=== PATIENT | female | born 1960 | race African-American/Black ===

== ENCOUNTER 2018-02-13 14:13 | Inpatient (IN) ==
[2018-02-13 15:28] LABS: Basophils % 0.5 % (0.0-0.8); Eosinophils # 0.1 10*3/uL (0.0-0.87); Eosinophils % 1.5 % (0.00-10.9); Hematocrit 36.4 VOL% (35.7-47.0); Immature Granulocytes % 0.3 %; Immature Granulocytes Absolute 0.02 #; Lymphocytes # 1.2 10*3/uL (1.4-4.0); Lymphocytes % 20.3 % (21.3-54.2); Mean Corpuscular Hemoglobin 30 PG (27-34); Mean Corpuscular Volume 89.9 FL (87-102); Mean Platelet Volume 10.4 FL (9.6-12.0); Monocytes # 0.5 10*3/uL (0.11-0.8); Monocytes % 8.7 % (1.7-12.7); Neutrophils % 68.7 % (38.7-73.9); Platelet Count 299 T/CUMM (130-400); Red Blood Count 4.05 MC/CUMM (3.8-5.5); Red Cell Distribution Width 13.7 % (9.3-17.3); White Blood Count 5.9 T/CUMM (4-12)
[2018-02-13 15:35] LABS: INR 0.9; PT Patient Result 9.8 SECS; Partial Thromboplastin Time 27.8 SECS (0-40)
[2018-02-13 15:39] LABS: Apearance,Urine CLEAR (Clear); Bilirubin,Urine Negative (Negative); Blood, Urine Negative (Negative); Glucose,Urine (UA) Negative (Negative); Ketones,Urine Negative (Negative); Mucus,Urine Occasional /LPF (Occasional); Nitrite,Urine Negative (Negative); Protein,Urine Negative; RBC,Urine 2 /HPF (0-4); Squamous Epithelial Cell,Urine Occasional /HPF (0-10); Urine Color Yellow (Yellow); Urine Specific Gravity 1.016 (1.001-1.035); Urine Urobilinogen < 2.0 EU/DL (0.2-1.0); WBC,Urine 35 /HPF (0-6)
[2018-02-13 15:52] LABS: Alanine Aminotransferase 24 U/L (13-56); Albumin 3.9 G/DL (3.4-5.0); Alkaline Phosphatase 114 U/L (45-117); Aspartate Amino Transferase 21 U/L (0-37); Bilirubin,Total < 0.39 MG/DL (0.2-1.0); Blood Urea Nitrogen 21 MG/DL (7-18); Calcium 9.5 MG/DL (8.5-10.1); Glucose 93 MG/DL (74-106); Osmolality,Calculated 283.3 MOS/KG (273-304); Sodium 141 MMOL/L (136-145); Total Protein 7.9 G/DL (6.4-8.3)
[2018-02-13] MEDS ORDERED: cefTRIAXone 1,000 MG in SODIUM CHLORIDE 0.9% 100 ML IV STA (15:52)
[2018-02-13 16:09] LABS: Barbiturates Screen,Urine Negative (Negative); Benzodiazepines Screen,Urine Negative (Negative); Cannabinoid Screen,Urine Positive (Negative); Opiate Screen,Urine Negative (Negative); Phencyclidine Screen,Urine Negative (Negative)
[2018-02-13] MEDS ORDERED: LABETALOL 20 MG/4 ML SYRINGE IV PRN (16:36)
[2018-02-13] MEDS: ENOXAPARIN 40 MG/0.4 ML SYRINGE SUBCUT SCH (20:46)
[2018-02-13] MEDS: PANTOPRAZOLE 40 MG TABLET PO SCH (20:46)
[2018-02-13] MEDS: CYPROHEPTADINE 4 MG TABLET PO SCH (20:46)
[2018-02-13] MEDS: ROSUVASTATIN 20 MG TABLET PO SCH (20:46)
[2018-02-13] MEDS: ASPIRIN 325 MG TABLET PO SCH (22:58)
[2018-02-14 04:47] LABS: Basophils % 0.5 % (0.0-0.8); Eosinophils # 0.2 10*3/uL (0.0-0.87); Eosinophils % 3.3 % (0.00-10.9); Hematocrit 34.5 VOL% (35.7-47.0); Hemoglobin 11.5 GM/DL (12.0-16.0); Immature Granulocytes % 0.5 %; Immature Granulocytes Absolute 0.03 #; Lymphocytes # 1.2 10*3/uL (1.4-4.0); Lymphocytes % 20.5 % (21.3-54.2); Mean Corpuscular HGB Conc 33.3 GM/DL (32-36); Mean Corpuscular Hemoglobin 30 PG (27-34); Mean Corpuscular Volume 89.6 FL (87-102); Monocytes # 0.4 10*3/uL (0.11-0.8); Monocytes % 7.7 % (1.7-12.7); Neutrophils # 3.9 10*3/uL (1.4-7.4); Neutrophils % 67.5 % (38.7-73.9); Platelet Count 289 T/CUMM (130-400); Red Blood Count 3.85 MC/CUMM (3.8-5.5); White Blood Count 5.7 T/CUMM (4-12)
[2018-02-14 05:25] LABS: Calcium 8.8 MG/DL (8.5-10.1); Osmolality,Calculated 285.1 MOS/KG (273-304); Potassium 3.8 MMOL/L (3.5-5.1)
[2018-02-14 05:33] LABS: Risk Ratio 5.34
[2018-02-14] MEDS: ASPIRIN 325 MG TABLET PO SCH (08:41)
[2018-02-14] MEDS: PANTOPRAZOLE 40 MG TABLET PO SCH (08:41)
[2018-02-14] MEDS: CYPROHEPTADINE 4 MG TABLET PO SCH ×3 (08:41→20:39)
[2018-02-14] MEDS: amLODIPine 5 MG TABLET PO SCH (16:43)
[2018-02-14] MEDS ORDERED: cefTRIAXone 1,000 MG in SYRINGE 1 EACH IV SCH (17:00)
[2018-02-14] MEDS: ROSUVASTATIN 20 MG TABLET PO SCH (20:38)
[2018-02-14] MEDS: ENOXAPARIN 40 MG/0.4 ML SYRINGE SUBCUT SCH (20:38)
[2018-02-15] MEDS: amLODIPine 5 MG TABLET PO SCH (08:43)
[2018-02-15] MEDS: CYPROHEPTADINE 4 MG TABLET PO SCH ×2 (08:43→15:29)
[2018-02-15] MEDS: ASPIRIN 325 MG TABLET PO SCH (08:43)
[2018-02-15] MEDS: PANTOPRAZOLE 40 MG TABLET PO SCH (08:43)
[2018-02-15 11:03] VITALS: BP 125/74
== END 2018-02-15 15:00 | disposition home or self-care (01) ==
LOC: EDUNIT# → EDBD → N.ED 14:13 → N.EDINP 16:36 → N.4E 18:08
PROVIDERS: ADMIT Internal Medicine; ATTEND Internal Medicine

== ENCOUNTER 2018-05-09 18:13 | Observation (INO) ==
[2018-05-09 19:00] LABS: INR 0.9; PT Patient Result 9.7 SECS; Partial Thromboplastin Time 26.3 SECS (0-40)
[2018-05-09 19:34] LABS: Albumin 3.7 G/DL (3.4-5.0); Bilirubin,Total 0.4 MG/DL (0.2-1.0); Osmolality,Calculated 275.5 MOS/KG (273-304); Potassium 3.4 MMOL/L (3.5-5.1)
[2018-05-09 19:35] LABS: Basophils % 0.4 % (0.0-0.8); Eosinophils % 0.4 % (0.00-10.9); Hematocrit 35.7 VOL% (35.7-47.0); Hemoglobin 11.6 GM/DL (12.0-16.0); Immature Granulocytes % 0.6 %; Immature Granulocytes Absolute 0.05 #; Lymphocytes # 1.4 10*3/uL (1.4-4.0); Lymphocytes % 16.8 % (21.3-54.2); Mean Corpuscular HGB Conc 32.5 GM/DL (32-36); Mean Corpuscular Hemoglobin 29 PG (27-34); Mean Corpuscular Volume 87.7 FL (87-102); Mean Platelet Volume 10.3 FL (9.6-12.0); Monocytes # 0.4 10*3/uL (0.11-0.8); Monocytes % 5.2 % (1.7-12.7); Neutrophils # 6.5 10*3/uL (1.4-7.4); Neutrophils % 76.6 % (38.7-73.9); Platelet Count 306 T/CUMM (130-400); Red Blood Count 4.07 MC/CUMM (3.8-5.5); Red Cell Distribution Width 14.6 % (9.3-17.3); White Blood Count 8.5 T/CUMM (4-12)
[2018-05-09 20:41] LABS: Apearance,Urine CLEAR (Clear); Bilirubin,Urine Negative (Negative); Blood, Urine Negative (Negative); Glucose,Urine (UA) Negative (Negative); Ketones,Urine Negative (Negative); Mucus,Urine Occasional /LPF (Occasional); Nitrite,Urine Negative (Negative); Protein,Urine Negative; RBC,Urine 2 /HPF (0-4); Squamous Epithelial Cell,Urine Occasional /HPF (0-10); Urine Color Yellow (Yellow); Urine Specific Gravity 1.012 (1.001-1.035); Urine Urobilinogen < 2.0 EU/DL (0.2-1.0); WBC,Urine 21 /HPF (0-6)
[2018-05-09] MEDS ORDERED: cefTRIAXone 1,000 MG in SODIUM CHLORIDE 0.9% 100 ML IV STA (20:44)
[2018-05-09 21:47] LABS: Barbiturates Screen,Urine Positive (Negative); Benzodiazepines Screen,Urine Negative (Negative); Cannabinoid Screen,Urine Positive (Negative); Opiate Screen,Urine Negative (Negative); Phencyclidine Screen,Urine Negative (Negative)
[2018-05-09] MEDS ORDERED: DOCUSATE SODIUM 100 MG CAPSULE PO PRN (22:11)
[2018-05-09] MEDS ORDERED: ONDANSETRON 4 MG/2 ML VIAL IV PRN (22:11)
[2018-05-09] MEDS ORDERED: ZALEPLON 5 MG CAPSULE PO PRN (22:11)
[2018-05-09] MEDS ORDERED: MORPHINE 4 MG/1 ML VIAL IV PRN (22:11)
[2018-05-09] MEDS ORDERED: ACETAMINOPHEN 325 MG TABLET PO PRN (22:11)
[2018-05-09] MEDS ORDERED: BUTALBITAL/ACETAMIN/CAFFEINE 50-325-40 MG TABLET PO PRN (22:17)
[2018-05-09] MEDS ORDERED: MAGNESIUM SULF RIDER 2 GM in PREMIX 1 EACH IV PRN (22:22)
[2018-05-09] MEDS ORDERED: MAGNESIUM SULF RIDER 4 GM in PREMIX 1 EACH IV PRN (22:22)
[2018-05-09] MEDS ORDERED: SODIUM CHLORIDE 0.9% 1,000 ML IV SCH (22:30)
[2018-05-09] MEDS: ENOXAPARIN 40 MG/0.4 ML SYRINGE SUBCUT SCH (23:15)
[2018-05-09] MEDS: ATORVASTATIN 40 MG TABLET PO SCH (23:15)
[2018-05-10 06:50] LABS: Basophils % 0.6 % (0.0-0.8); Eosinophils # 0.1 10*3/uL (0.0-0.87); Hematocrit 33.1 VOL% (35.7-47.0); Hemoglobin 10.8 GM/DL (12.0-16.0); Immature Granulocytes % 0.4 %; Immature Granulocytes Absolute 0.03 #; Lymphocytes # 1.7 10*3/uL (1.4-4.0); Lymphocytes % 24.1 % (21.3-54.2); Mean Corpuscular HGB Conc 32.6 GM/DL (32-36); Mean Corpuscular Hemoglobin 29 PG (27-34); Mean Corpuscular Volume 88.5 FL (87-102); Monocytes # 0.6 10*3/uL (0.11-0.8); Neutrophils # 4.5 10*3/uL (1.4-7.4); Neutrophils % 64.9 % (38.7-73.9); Platelet Count 285 T/CUMM (130-400); Red Blood Count 3.74 MC/CUMM (3.8-5.5); Red Cell Distribution Width 14.6 % (9.3-17.3)
[2018-05-10 06:52] LABS: Calcium 8.5 MG/DL (8.5-10.1); Osmolality,Calculated 279.3 MOS/KG (273-304); Potassium 3.2 MMOL/L (3.5-5.1)
[2018-05-10] MEDS: POTASSIUM CHLORIDE 20 MEQ TABLET PO PRN ×2 (07:57→12:28)
[2018-05-10] MEDS ORDERED: POTASSIUM CHLORIDE 20 MEQ TABLET PO ONE (09:24)
[2018-05-10] MEDS: PANTOPRAZOLE 40 MG TABLET PO SCH (10:29)
[2018-05-10] MEDS: ASPIRIN EC 81 MG TABLET PO SCH (10:30)
[2018-05-10] MEDS: amLODIPine 5 MG TABLET PO SCH (10:30)
[2018-05-10] MEDS: KETOROLAC 15 MG/1 ML VIAL IV SCH ×3 (10:38→21:31)
[2018-05-10] MEDS: GABAPENTIN 100 MG CAPSULE PO SCH ×2 (10:38→21:27)
[2018-05-10] MEDS ORDERED: cefTRIAXone 1,000 MG in SYRINGE 1 EACH IV SCH (21:00)
[2018-05-10] MEDS: ATORVASTATIN 40 MG TABLET PO SCH (21:26)
[2018-05-10] MEDS: ENOXAPARIN 40 MG/0.4 ML SYRINGE SUBCUT SCH (21:31)
[2018-05-11 05:17] LABS: Basophils % 0.3 % (0.0-0.8); Eosinophils # 0.2 10*3/uL (0.0-0.87); Eosinophils % 2.3 % (0.00-10.9); Hemoglobin 10.9 GM/DL (12.0-16.0); Immature Granulocytes % 0.6 %; Immature Granulocytes Absolute 0.04 #; Lymphocytes # 1.6 10*3/uL (1.4-4.0); Lymphocytes % 22.5 % (21.3-54.2); Mean Corpuscular HGB Conc 32.1 GM/DL (32-36); Mean Corpuscular Hemoglobin 29 PG (27-34); Mean Corpuscular Volume 89.2 FL (87-102); Monocytes # 0.5 10*3/uL (0.11-0.8); Monocytes % 6.8 % (1.7-12.7); Neutrophils # 4.8 10*3/uL (1.4-7.4); Neutrophils % 67.5 % (38.7-73.9); Platelet Count 279 T/CUMM (130-400); Red Blood Count 3.81 MC/CUMM (3.8-5.5); Red Cell Distribution Width 14.8 % (9.3-17.3); White Blood Count 7.1 T/CUMM (4-12)
[2018-05-11] MEDS: KETOROLAC 15 MG/1 ML VIAL IV SCH ×2 (05:25→10:49)
[2018-05-11 05:28] LABS: Calcium 8.8 MG/DL (8.5-10.1); Osmolality,Calculated 278.5 MOS/KG (273-304); Potassium 4.2 MMOL/L (3.5-5.1)
[2018-05-11] MEDS: PANTOPRAZOLE 40 MG TABLET PO SCH (08:41)
[2018-05-11] MEDS: amLODIPine 5 MG TABLET PO SCH (08:41)
[2018-05-11] MEDS: GABAPENTIN 100 MG CAPSULE PO SCH (08:41)
[2018-05-11] MEDS: ASPIRIN EC 81 MG TABLET PO SCH (08:41)
[2018-05-11 11:57] VITALS: BP 132/73
== END 2018-05-11 12:10 | disposition home or self-care (01) ==
LOC: N.5E 18:13 → N.ED 18:13 → N.5E 22:43
PROVIDERS: ADMIT Internal Medicine; ATTEND Internal Medicine